=== PATIENT | female | born 1990 | race Asian ===

== ENCOUNTER → 2017-01-31 | Outpatient (CLI) | payer OTHER | END | disposition home or self-care (01) | LOC: MSR 09:38 | PROVIDERS: ATTEND Internal Medicine | DX: Z00.01 Encounter for general adult medical examination with abnormal findings (principal); R76.11 Nonspecific reaction to tuberculin skin test without active tuberculosis; M41.80 Other forms of scoliosis, site unspecified | CPT/HCPCS: 71020; 86592 ==